=== PATIENT | male | born 1985 | race Two or more races ===

== ENCOUNTER 2021-05-26 10:20 | Outpatient (CLI) | payer OTHER | END 2021-05-26 10:24 | disposition home or self-care (01) | LOC: LAB 10:20 | PROVIDERS: ATTEND General Practice | DX: R10.84 Generalized abdominal pain (principal); R11.0 Nausea; R12 Heartburn; E66.9 Obesity, unspecified; Z00.01 Encounter for general adult medical examination with abnormal findings; Z12.11 Encounter for screening for malignant neoplasm of colon; Z13.0 Encounter for screening for diseases of the blood and blood-forming organs and certain disorders involving the immune mechanism; Z13.1 Encounter for screening for diabetes mellitus; Z13.228 Encounter for screening for other metabolic disorders; Z13.220 Encounter for screening for lipoid disorders; E78.2 Mixed hyperlipidemia; E03.8 Other specified hypothyroidism ==

== ENCOUNTER → 2021-06-01 10:10 | Outpatient (CLI) | payer OTHER | END | disposition home or self-care (01) | LOC: LAB 10:10 | PROVIDERS: ATTEND General Practice | DX: K21.9 Gastro-esophageal reflux disease without esophagitis (principal); E78.2 Mixed hyperlipidemia; Z11.3 Encounter for screening for infections with a predominantly sexual mode of transmission; Z11.4 Encounter for screening for human immunodeficiency virus [HIV]; E66.8 Other obesity; Z13.220 Encounter for screening for lipoid disorders; Z13.0 Encounter for screening for diseases of the blood and blood-forming organs and certain disorders involving the immune mechanism; Z13.1 Encounter for screening for diabetes mellitus; Z11.59 Encounter for screening for other viral diseases; Z12.11 Encounter for screening for malignant neoplasm of colon; Z13.228 Encounter for screening for other metabolic disorders ==

== ENCOUNTER 2021-06-08 10:36 | Outpatient (CLI) | payer OTHER | END 2021-06-08 10:41 | disposition home or self-care (01) | LOC: SONOGRAMA 10:36 | PROVIDERS: ATTEND General Practice | DX: R10.84 Generalized abdominal pain (principal); R11.0 Nausea; R12 Heartburn; R10.11 Right upper quadrant pain; N20.1 Calculus of ureter ==

== ENCOUNTER 2025-02-06 11:18 | Emergency (ER) | payer OTHER ==
[~2025-02-06] VITALS: Ht 167.6 cm; Wt 107.5 kg
[2025-02-06 13:24] LABS: HEMATOCRIT 48.3 % (39.0-48.0); HEMOGLOBIN 16.5 g/dL (13-16.00); MEAN CELL VOLUME 88.6 fL (80.0-100.00); MEAN CORPUSCULAR HEMOGLOBIN 30.4 pg (27.00-32.0); MEAN CORPUSCULAR HGB CONC 34.3 g/dl (32.0-36.0); PLATELET COUNT 193 K/uL (150-450); RED BLOOD COUNT 5.45 M/uL (4.00-6.00); RED CELL DISTRIBUTION WIDTH 13.6 % (11.5-14.5)
[2025-02-06 14:54] LABS: CALCIUM 9.2 mg/dL (8.5-10.1); CREATININE SERUM 0.69 mg/dL (0.70-1.30); GFR 127.65; POTASSIUM 4.18 mEq/L (3.5-5.1)
[2025-02-06] MEDS ORDERED: MECLIZINE HCL 25 MG TABLET PO ONE ×2 (16:30→17:06)
[2025-02-06] MEDS ORDERED: ONDANSETRON HCL 2 MG/ML VIAL IV ONE (16:30)
[2025-02-06] MEDS ORDERED: ONDANSETRON HCL 2 MG/ML VIAL ONE (17:06)
[2025-02-06] MEDS ORDERED: MOTION SICKNESS25 M1 PO (17:57)
== END 2025-02-06 18:09 | disposition home or self-care (01) ==
LOC: ER 11:19
PROVIDERS: Emergency Medicine
DX: R42 Dizziness and giddiness (principal); R53.81 Other malaise; Z20.822 Contact with and (suspected) exposure to COVID-19